=== PATIENT | female | born 1960 | race Caucasian/White ===

== ENCOUNTER 2019-09-19 10:00 | Day surgery (SDC) ==
[2019-09-19] MEDS ORDERED: PEPCID ONE (10:43)
[2019-09-19] MEDS ORDERED: REGLAN ONE (10:43)
[2019-09-19] MEDS ORDERED: KEFZOL 1 GM/D5W 1 GM/50 ML IVPB ONE (10:43)
[2019-09-19] MEDS ORDERED: LR 1,000 ML ONE (10:43)
[2019-09-19] MEDS ORDERED: XYLOCAINE-MPF 2% ONE (11:20)
[2019-09-19] MEDS ORDERED: QUELICIN (DOSE) ONE (11:20)
[2019-09-19] MEDS ORDERED: DIPRIVAN 1% ONE (11:21)
[2019-09-19] MEDS ORDERED: XYLOCAINE 1%/EPI 1:100,000 ONE (11:47)
[2019-09-19] MEDS ORDERED: ZEMURON ONE (12:55)
[2019-09-19] MEDS ORDERED: FENTANYL ONE (13:02)
[2019-09-19] MEDS ORDERED: DECADRON ONE (13:04)
[2019-09-19] MEDS ORDERED: ZOFRAN ONE (13:04)
[2019-09-19] MEDS ORDERED: ROBINUL ONE (13:50)
[2019-09-19] MEDS ORDERED: NEOSTIGMINE ONE (13:51)
[2019-09-19] MEDS: DILAUDID ONE ×4 (14:11→14:32)
[2019-09-19] MEDS ORDERED: DEMEROL ONE ×2 (14:37→14:48)
[2019-09-19] MEDS: PHENERGAN ONE ×2 (14:37→14:48)
[2019-09-19] MEDS ORDERED: NORCO-7.5 ONE (15:15)
[2019-09-19] MEDS ORDERED: PHENERGAN IV PRN (16:50)
[2019-09-19] MEDS ORDERED: DILAUDID IV PRN (16:50)
[2019-09-19] MEDS ORDERED: TYLENOL PO PRN (16:50)
[2019-09-19] MEDS ORDERED: SODIUM CHLORIDE 0.9% INJ PRN (17:00)
[2019-09-19] MEDS ORDERED: LR 1,000 ML IV SCH (17:00)
[2019-09-19] MEDS: NORCO-7.5 PO PRN (19:00)
--- NOTE | 2019-09-19 19:31 | OPERATIVE NOTE ---
PROCEDURE DATE: 09/19/2019 PREOPERATIVE DIAGNOSIS: Right thyroid nodule. POSTOPERATIVE DIAGNOSIS: Right thyroid nodule. PRINCIPLE PROCEDURE: Right thyroid lobectomy. SURGEON: Jacinda Sanabria MD. PERIANESTHESIA MANAGER: Dorian Ellison RN. ANESTHESIA: General in addition to local anesthetic. ESTIMATED BLOOD LOSS: 25 mL. DRAINS: None. INDICATION: Evelyn Solo is a 58-year-old white female who has been experiencing pressure in her neck, and she also feels that something is in her throat when she swallows. She has been extensively evaluated by not only me for her thyroid, but Gastroenterology and ENT. We did a fine needle aspiration of a thyroid nodule and it was benign on the right side, but it was felt to be up against her esophagus and may be the cause of her symptoms, and right thyroid lobectomy was recommended. On the neck CT, her left thyroid lobe appeared to be normal. FINDINGS: She had a pedunculated thyroid nodule, mid right thyroid lobe, which extended posteriorly against her esophagus. We removed the entire right thyroid lobe and this nodule in hopes that it would help her symptoms. The left thyroid lobe looked normal. DESCRIPTION OF PROCEDURE: The patient was brought to the operating room, placed supine, received general anesthesia, and was intubated. I placed a roll underneath her shoulders. She was placed in reverse Trendelenburg. Her neck was extended. We prepped and draped her anterior neck, shoulders, and anterior chest. She received Ancef prophylactically. I used local anesthetic at my incision site. I made a 6 cm curvilinear incision centered at the midline trachea. We made it with a 15 blade scalpel. The cautery was used to transect the subcutaneous tissue and the platysma muscle. We created a subplatysmal plane both superiorly and inferiorly using the cautery and blunt finger dissection. I used a Gelpi for self-retaining retraction. I also used handheld Army-Golinda and Elise retractors. We used forceps and identified the midline between the strap muscles, and incised this deep neck fascia at the midline using cautery, and mobilized the strap muscles off the right thyroid lobe initially. I used Army-Golinda retractors to retract the strap muscles to the right. I used a sponge to retract the right thyroid lobe up superiorly and medially, identified the superior pole vessels, and came across them with the LigaSure. The middle thyroid vessels were transected. We made sure that we preserved the parathyroid gland in this area and its blood supply. We allowed the parathyroid to fall back posteriorly. The recurrent laryngeal nerve was identified. We stayed anterior to the recurrent laryngeal nerve, and we carefully dissected the right thyroid lobe up off the trachea. Special care was taken at the ligament of Tucker so as not to injure the nerve. We had a clean dissection of the right thyroid lobe from lateral to medial, and we came across the isthmus with the LigaSure. The thyroid nodule was pedunculated. It hung off the posterior aspect of the right thyroid lobe and extended deep along the trachea. This nodule was removed en bloc with the right thyroid lobe. We identified the left thyroid lobe. We dissected the strap muscles off of it. It appeared to be normal. We did not dissect any further. We left the left thyroid lobe in place. We thoroughly irrigated out the area of operation. The thyroid was sent for permanent section. There was no evidence of ongoing bleeding. We decided against leaving a drain. I reapproximated the strap muscles in the midline with interrupted 3-0 Vicryl stitches. I reapproximated the platysma muscle with 3-0 Vicryl stitches. I closed the skin with 4-0 Monocryl subcuticular stitch. The Steri- Strips were applied. She tolerated the procedure well with plans for her to go to the recovery room and be hospitalized at least overnight. I spoke with her family after the procedure. cc: MD Matthieu Rdz MD
[2019-09-19] MEDS: PERIDEX MT SCH (21:21)
[2019-09-20] MEDS: NORCO-7.5 PO PRN ×2 (02:54→08:40)
[2019-09-20] MEDS ORDERED: SYNTHROID PO SCH (07:00)
[2019-09-20] MEDS ORDERED: NEXIUM PO SCH (07:00)
[2019-09-20 08:23] VITALS: BP 117/73
[2019-09-20] MEDS: PERIDEX MT SCH (08:40)
--- NOTE | 2019-09-21 07:30 | DISCHARGE SUMMARY ---
ADMISSION DATE: 09/19/2019 DISCHARGE DATE: 09/20/2019 ADMITTING DIAGNOSIS: Right thyroid nodule. DISCHARGE DIAGNOSIS: Right thyroid nodule. PRINCIPAL PROCEDURE: Right thyroid lobectomy on 09/19/2019. DISCHARGE DISABILITY: Full. DISCHARGE DIET: Regular. DISCHARGE DISPOSITION: She will return to see us in our outpatient offices in 7 to 10 days. DISCHARGE MEDICATIONS: She is to return to her home medications which include Synthroid 75 mcg per day. HOSPITAL COURSE: Ms. Evelyn Solo is a 58-year-old, white female who had a right thyroid nodule which she felt was symptomatic with causing dysphagia and she felt that something was in her throat. We thoroughly studied her with neck CT scans. She was also seen by our test kitchen home economist, Dr. Valles, and ENT, Dr. Be, and we felt that the only thing that could be causing these symptoms is a right thyroid nodule that was posterior and up against her esophagus. Resection was recommended. She was admitted on the day of surgery and she underwent a right thyroid lobectomy. During surgery, the right recurrent laryngeal nerve was identified and preserved, as was parathyroid tissue on the right. We did evaluate the left thyroid gland at the time of surgery but it appeared to be of normal size, without a nodule, and we did not dissect the left thyroid nodule. We did not leave a drain at the time of surgery. She went to the recovery room after surgery and then to the [address] [place] [id number] [place]. We kept her on clear liquids and her bed elevated to 30 degrees. On the morning of postop day 1, she had no significant swelling or hematoma involving the neck. Her voice appeared to be normal and symptomatically, she felt that the sensation of dysphagia had resolved. She was complaining of some sinusitis symptoms and we will give her Augmentin. We will give her a pain medicine in case she needs it and she will follow up with me in 7 to 10 days. She knows to contact me with any problems. cc: MD Matthieu Rdz MD
== END 2019-09-20 09:20 | disposition home or self-care (01) ==
LOC: OR 10:00 → 4N 10:00 → OR 09-20 09:20
PROVIDERS: ATTEND Surgery
PROC: GE.THYR (2019-09-19 12:44)